=== PATIENT | female | born 1970 | race Caucasian/White ===

== ENCOUNTER → 2016-12-14 | Outpatient (CLI) | payer OTHER ==
--- NOTE | 2016-12-14 09:14 | US ---
Ultrasound of the Abdomen Limited History: R 10.9 Abdominal pain. Comparison: None. Findings: Gallbladder: No shadowing calculi, wall thickening, or pericholecystic fluid. Common bile duct is 5 m m in diameter which is normal. Liver: Diffusely increased in echogenicity without definite focal lesions and measures 15 cm in lengt h. Renal: Right kidney measures 10 x 6 x 5 cm without hydronephrosis. Pancreas: Homogeneous without peripancreatic fluid. Tail obscured by bowel gas. Aorta: Visualized upper abdominal aorta demonstrates no aneurysm. Impression: 1. No cholelithiasis or biliary ductal dilation. 2. Mild hepatic steatosis.
== END ==
LOC: CIMAGING 07:53
PROVIDERS: ATTEND Family Medicine
DX: R10.9 Unspecified abdominal pain (principal)
CPT/HCPCS: 76705-PO

== ENCOUNTER → 2016-12-28 | Outpatient (CLI) | payer OTHER ==
--- NOTE | 2016-12-28 12:02 | NM ---
Nuclear Medicine Hepatobiliary Scan with Gallbladder Ejection Fraction Clinical History: 46-year-old female with a normal sonographic appearance of the gallbladder, complai duong epigastric pain. The patient's symptoms have been ongoing for 9 years. Evaluate for gallbladder dysfunction. ICD 10 Diagnostic Code: R10.13. Radiopharmaceutical: 5.4 mCi mCi of IV technetium 99m Choletec. Medical Pharmaceutical: 50.7 g of fat and 8 ounces of oral Nepro. Findings: Hepatobiliary Scan: There is prompt homogeneous radiotracer uptake by the liver. The bladder begins t o fill by approximately 3 minutes, and small bowel is visualized by 23 minutes. There is therefore no evidence of acute or chronic cholecystitis, or of cystic or common bile duct obstruction. Gallbladder Ejection Fraction: This is normal, measuring 88% (the normal range is greater than 35%). There is therefore no evidence of gallbladder dyskinesia. There is no duodenal-gastric reflux. Impression: Normal studies.
== END ==
LOC: FIMAGING 09:03
PROVIDERS: ATTEND Family Medicine
DX: R10.13 Epigastric pain (principal)
CPT/HCPCS: 78227; A9537

== ENCOUNTER → 2018-10-04 | Outpatient (CLI) | payer OTHER | LOC: CIMAGING 08:44 | PROVIDERS: ATTEND Family Medicine | DX: Z12.31 Encounter for screening mammogram for malignant neoplasm of breast (principal) ==

== ENCOUNTER → 2018-10-21 | Outpatient (CLI) | payer OTHER | LOC: CIMAGING 13:24 | PROVIDERS: ATTEND Family Medicine | DX: R92.8 Other abnormal and inconclusive findings on diagnostic imaging of breast (principal) ==